=== PATIENT | male | born 1955 | race Hispanic/Latino ===

== ENCOUNTER → 2021-12-31 | Outpatient (CLI) | payer OTHER | END | disposition home or self-care (01) | LOC: RAH 13:37 | PROVIDERS: ATTEND Internal Medicine Cardiovascular Disease | DX: Z13.6 Encounter for screening for cardiovascular disorders (principal); I51.5 Myocardial degeneration | CPT/HCPCS: 75571 ==

== ENCOUNTER → 2022-01-19 | Outpatient (CLI) | payer MEDICARE | END | disposition home or self-care (01) | LOC: SHCH 10:16 → EDUNIT# 11:00 | PROVIDERS: ATTEND Internal Medicine Cardiovascular Disease | DX: R06.02 Shortness of breath (principal); I10 Essential (primary) hypertension; E78.5 Hyperlipidemia, unspecified | CPT/HCPCS: 93306 ==

== ENCOUNTER → 2024-04-26 | Outpatient (CLI) | payer MEDICARE | END | disposition home or self-care (01) | LOC: RAH 09:29 | PROVIDERS: ATTEND Internal Medicine Gastroenterology | DX: K21.9 Gastro-esophageal reflux disease without esophagitis (principal); R49.8 Other voice and resonance disorders | CPT/HCPCS: 74240 ==

== ENCOUNTER → 2024-07-20 | Outpatient (CLI) | payer MEDICARE ==
--- NOTE | 2024-07-20 10:59 | HMCIMG ---
MR KNEE RIGHT WO REASON: M23.91 Unspecified internal derangement of right knee COMPARISON: None TECHNIQUE: Routine imaging protocol was performed in the sagittal, axial and coronal plane with T1, proton density, T2 and gradient recalled sequences. FINDINGS: There is moderate cardiomegaly which loss in the medial and lateral joint spaces. 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 There is no evidence of an acute meniscal tear. The medial meniscus shows marked attenuation in the mid zone consistent with degenerative change. There is no evidence of meniscal tear. There is moderate to marked patellofemoral joint space cartilage loss. Cruciate and collateral ligaments appear intact. Quadriceps and patellar tendons are normal. There are no focal osseous lesions. There is a moderate to large joint effusion. Stranding soft tissues appear unremarkable. IMPRESSION: 1. Moderate to large joint effusion. 2. Moderate to cartilage loss in both medial and lateral joint spaces with marked meniscal degenerative change, there is moderate to severe cartilage loss in the patellofemoral joint space. 3. No acute traumatic finding.
== END | disposition home or self-care (01) ==
LOC: RAH 09:13
PROVIDERS: ATTEND Student in an Organized Health Care Education/Training Program
DX: M25.461 Effusion, right knee (principal); M23.91 Unspecified internal derangement of right knee; I51.7 Cardiomegaly; M17.11 Unilateral primary osteoarthritis, right knee
CPT/HCPCS: 73721